=== PATIENT | female | born 1995 | race African-American/Black ===

== ENCOUNTER 2016-11-28 06:56 | Emergency (ER) | payer MEDICAID, OTHER ==
[~2016-11-28] VITALS: Ht 162.6 cm; Wt 103.9 kg
[2016-11-28 07:27] VITALS: BP 140/65
[2016-11-28 07:57] LABS: Basophils # (auto) 0 uL; Basophils % (auto) 0.3 % (0.0-2.0); Eosinophils # (auto) 0.2 uL; Eosinophils % (auto) 3.6 % (0.0-7.0); Lymphocytes # (auto) 2.1 uL; Lymphocytes % (auto) 33.1 % (10.0-50.0); Mean Corpuscular Hemoglobin 29.1 pg (28.0-32.0); Mean Corpuscular Hgb Conc. 33.3 g/dL (32.0-36.0); Mean Corpuscular Volume 87.6 fL (80.0-100.0); Mean Platelet Volume 8.5 fL (7.4-10.4); Monocytes # (auto) 0.3 uL; Monocytes % (auto) 5.3 % (0.0-12.0); Neutrophils # (auto) 3.7 uL; Neutrophils % (auto) 57.7 % (37.0-80.0); Platelet Count (auto) 249 10^3/uL (140-450); Red Cell Distribution Width 13.9 % (11.6-16.0); White Blood Cell 6.4 10^3/uL (4.4-10.8)
== END 2016-11-28 11:00 | disposition home or self-care (01) ==
LOC: ER 06:59
DX: O26.851 Spotting complicating pregnancy, first trimester (principal); G30.9 Alzheimer's disease, unspecified; F02.80 Dementia in other diseases classified elsewhere, unspecified severity, without behavioral disturbance, psychotic disturbance, mood disturbance, and anxiety; Z3A.12 12 weeks gestation of pregnancy
CPT/HCPCS: 36415; 76801; 84702; 85025

== ENCOUNTER 2022-04-09 07:39 | Emergency (ER) | payer MEDICAID ==
[~2022-04-09] VITALS: Ht 165.1 cm; Wt 100.9 kg
[2022-04-09 10:45] VITALS: BP 147/100
== END 2022-04-09 10:52 | disposition home or self-care (01) ==
LOC: ER 07:39
DX: M76.62 Achilles tendinitis, left leg (principal)
CPT/HCPCS: 73610; 73630; 93971

== ENCOUNTER 2025-01-22 13:16 | Emergency (ER) | payer MEDICAID ==
[~2025-01-22] VITALS: Ht 162.6 cm; Wt 113.6 kg
[~2025-01-22 13:16] MED LIST: BENZLOZ2 MT; CLIN150C18 PO; IBUP1TAB5 PO; PRED20TA2 PO
--- NOTE | 2025-01-22 14:19 | ED.PDOC ---
Eye-HPI HPI Comments A 29 YEAR-OLD FEMALE PRESENTS TO THE ED WITH A CHIEF COMPLAINT OF RIGHT SIDED EAR PAIN AND JAW PAIN OF YESTERDAY. PATIENT STATES THAT SHE HEARD HER JAW "POP" LAST NIGHT, AND HAS SINCE BEEN EXPERIENCING RIGHT SIDED JAW PAIN DUE TO RIGHT SIDE EAR PAIN. PATIENT HAS NO FURTHER COMPLAINTS AT THIS TIME AND OTHERWISE DENIES THROAT PAIN, TOOTH PAIN, FEVER, CHILLS, OR N/V. PATIENT IS ALERT, ORIENTED X 4, AND HAS STEADY GAIT. PT IS ABLE TO TALK AND OPEN MOUTH WITH NORMAL ROM. Chief Complaint: Jaw Pain Time Seen by MD: 14:00 Primary Care Provider: Ramon Reviewed Notes: Nurses Notes, Medications, Allergies Allergies: Coded Allergies: NO KNOWN ALLERGIES (Unverified , 11/11/11) Home Meds Active Scripts Ibuprofen (Ibuprofen) 800 Mg Tab, 1 TAB PO TID, #30 TAB Prov:LUIS F DIANA 01/22/25 Amoxicillin & Pot Clavulanate (AUGMENTIN TABLET) 875 Mg Tb, 875 MG PO BID, #20 TAB Prov:LUIS F DIANA 01/22/25 Ibuprofen Micronized (Ibuprofen) 600 Mg Tab, 1 TAB PO Q6HPRN PRN, #20 TAB For pain Prov:LEONHAYDENALDA Q BIOMATHEMATICIAN 09/22/23 Benzocaine-Menthol (Mouth-Thro (Cepacol Sore Throat) 1 Nahomy Nahomy, 1 NAHOMY MT Q4HPRN PRN, #24 NAHOMY As needed for sore throat Prov:TERRY LEONA Q BIOMATHEMATICIAN 09/22/23 Prednisone (Prednisone) 20 Mg Tab, 1 TAB PO DAILY for 5 Days, #5 TAB Start tomorrow with food Prov:TENISHA LEON Q BIOMATHEMATICIAN 09/22/23 Clindamycin Hcl (Clindamycin Hcl) 150 Mg Cap, 1 CAP PO QID for 10 Days, #40 CAP Prov:TENISHA LEON Q BIOMATHEMATICIAN 09/22/23 Information Source: Patient Mode of Arrival: Ambulatory Timing: Days (X1) Duration: Since onset Quality: Pain (RIGHT SIDED ) Lids: Normal Conjunctiva: Normal Cornea: Normal Pupils: Normal EOM: Normal Fundus: Normal Slit lamp exam: Normal Anterior chamber: Normal Mouth Location: Right Mouth: Right (JAW) ENT Ear Exam: Red, Bulging, Dull Nose: Normal Sinuses: Normal Onset: Spontaneous Associated signs and symptoms: Ear Pain (RIGHT ), Other (RIGHT SIDED EAR PAIN ) Past Medical History PAST MEDICAL HISTORY: Denies Surgical History: Denies all surgeries DIRT SHOVELER History: No Pertinent DIRT SHOVELER History Family History Family History: Unknown Social History Smoker: Non-Smoker Alcohol: Denies ETOH Use Drugs: Denies Drug Use Lives In: Home Constitutional: denies: chills, diaphoresis, fatigue, fever, malaise, sweats, weakness, others EENTM: reports: ear pain (RIGHT); denies: blurred vision, double vision, ear bleeding, ear discharge, ear drainage, ear ringing, eye pain, eye redness, hearing loss, mouth pain, mouth swelling, nasal discharge, nose bleeding, nose congestion, nose pain, photophobia, tearing, throat pain, throat swelling, voice changes Respiratory: denies: cough, hemoptysis, orthopnea, SOB at rest, shortness of breath, SOB with excertion, stridor, wheezing, others Cardiovascular: denies: chest pain, dizzy spells, diaphoresis, Dyspnea on exertion, edema, irregular heart beat, left arm pain, lightheadedness, palpitations, PND, syncope, others Gastrointestinal: denies: abdomen distended, abdominal pain, blood streaked bowels, constipated, diarrhea, dysphagia, difficulty swallowing, hematemesis, melena, nausea, poor appetite, poor fluid intake, rectal bleeding, rectal pain, vomiting, others Genitourinary: denies: abnormal vagina bleeding, burning, dyspareunia, dysuria, flank pain, frequency, hematuria, incontinence, pain, , vagina discharge, urgency, others Neurological: denies: dizziness, fainting, headache, left sided numbness, left sided weakness, numbness, paresthesia, pre-existing deficit, right sided numbness, right sided weakness, seizure, speech problems, tingling, tremors, weakness, others Musculoskeletal: denies: back pain, gout, joint pain, joint swelling, muscle pain, muscle stiffness, neck pain, others Integumetry: denies: bruises, change in color, change in hair/nails, dryness, laceration, lesions, lumps, rash, wounds, others Allergic/Immunocompromised: denies: Difficulty Healing, Frequent Infections, Hives, Itching, others Hematologic/Lymphatic: denies: anemia, blood clots, easy bleeding, easy bruising, swollen glands, others Endocrine: denies: excessive hunger, excessive sweating, excessive thirst, excessive urination, flushing, intolerance to cold, intolerance to heat, une xplained weight gain, unexplained weight loss, others Psychiatric: denies: anxiety, bipolar disorder, depression, hopeless, panic disorder, schizophrenia, sleepless, suicidal, others All Other Systems: Reviewed and Negative Physical Exam General Appearance: No Apparent Distress, Obese HEENT: PERRL/EOMI, Pharynx Normal, TM Abnormal (R) (ERYTHEMA AND DULL WITH EFFUSION OF RIGHT TM, NO BLEEDING AND SWELLING, NO FACIAL REDNESS AND DEFORMITY. ) Neck: Full Range of Motion, Non-Tender, Normal, Normal Inspection Respiratory: Chest Non-Tender, Lungs Clear, No Accessory Muscle Use, No Respiratory Distress, Normal Breath Sounds Cardiovascular: No Edema, No JVD, No Murmur, No Gallop, Normal Peripheral Pulses, Regular Rate/Rhythm Breast Exam: Deferred Gastrointestinal: No Organomegaly, Non Tender, No Pulsatile Mass, Normal Bowel Sounds, Soft Genitalia: Deferred Pelvic: Deferred Rectal: Deferred Extremities: No calf tenderness, Normal capillary refill, Normal inspection, Normal range of motion, Non-tender, No pedal edema Musculoskeletal : Apperance: Normal Neurologic: Alert, repair order clerk II-XII nml as Tested, No Motor Deficits, Normal Affect, Normal Mood, No Sensory Deficits Cerebellar Function: Normal Reflexes: Normal Skin: Dry, Normal Color, Warm Peripheral Pulses: 2+ carotid (R), 2+ carotid (L) Lymphatic: No Adenopathy Was a procedure done? Was a procedure done?: No EENT DIFF Eye: Other Ear: Otitis Externa, Otitis Media, Pharyngitis X-Ray, Labs, Meds, VS Vital Signs Date Time Temp Pulse Resp B/P (MAP) Pulse Ox O2 Delivery O2 Flow Rate FiO2 01/22/25 13:45 98.7 88 20 148/108 (121) 97 98.7 01/22/25 13:45 88 20 X-Ray, Labs, Meds, VS Comment EXTERNAL MEDICAL RECORDS: NONE INDEPENDENT HISTORIANS: NONE SOCIAL DETERMINANTS OF HEALTH: NONE LABS ORDERED: NONE REVIEWED AND INTERPRETED RESULTS: NONE IMAGING ORDERED: NONE TREATMENTS ORDERED: NONE PATIENT'S CASE AND RESULTS HAVE BEEN DISCUSSED WITH THE ED ATTENDING PHYSICIAN AND THEY AGREE WITH MY PLAN OF CARE. RX: AUGMENTIN AND IBUPROFEN I HAVE DISCUSSED IMAGING AND LAB RESULTS WITH THE PATIENT AND HAVE INSTRUCTED THE PATIENT TO FOLLOW UP WITH THEIR PCP IN 1-2 DAYS. THE PATIENT FULLY UNDERSTANDS THEIR RESULTS AND ARE AWARE THEY NEED TO FOLLOW UP WITH THEIR PCP FOR FURTHER EVALUATION IF THEIR SYMPTOMS PERSIST. Images Reviewed?: Images reviewed and evaluated by me Time of 1ST Reevaluation: 14:28 Reevaluation 1ST: Improved Patient Education/Counseling: Diagnosis, Treatment, Need For Follow Up Family Education/Counseling: Diagnosis, Treatment, Need For Follow Up Medical Screening: No EMC Exist At This Time SEPSIS Sepsis Screen Vital Signs Date Time Temp Pulse Resp B/P (MAP) Pulse Ox O2 Delivery O2 Flow Rate FiO2 01/22/25 13:45 98.7 88 20 148/108 (121) 97 98.7 01/22/25 13:45 88 20 Departure 1 Departure Time of Disposition: 14:28 Impression: Primary Impression: Acute otitis media with effusion of right ear Disposition: 01 HOME / SELF CARE / HOMELESS Condition: Stable Additional Instructions: FOLLOW-UP WITH PCP IN 1 TO 2 DAYS. TAKE MEDICATIONS PRESCRIBED. RETURN TO ED FOR ANY NEW OR WORSENING SYMPTOMS. e-Prescriptions Ibuprofen (Ibuprofen) 800 Mg Tab 1 TAB PO TID, #30 TAB Prov: LUIS F DIANA 01/22/25 Amoxicillin & Pot Clavulanate (AUGMENTIN TABLET) 875 Mg Tb 875 MG PO BID, #20 TAB Prov: LUIS F DIANA 01/22/25 Discharged With: Self Critical Care Note Critical Care Time?: No Stability Stability form required: No Heart Score Heart Score: Heart Score Response (Comments) Value History N/A 0 EKG N/A 0 Age N/A 0 Risk Factors N/A 0 Troponin N/A 0 Total 0 I personally scribed for LUIS F DIANA ([email or web address]) on 01/22/25 at 14:19. Electronically submitted by Karime [email or web address]). LUIS F DIANA Jan 22, 2025 14:19
[2025-01-22] MEDS ORDERED: IBUP-1456 PO (14:21)
[2025-01-22] MEDS ORDERED: AUG875T PO (14:21)
[2025-01-22] MEDS ORDERED: cefTRIAXone SOD 1,000 MG VL IM ONE (14:30)
[2025-01-22] MEDS ORDERED: IBUPROFEN 800 MG TAB PO ONE (14:30)
[2025-01-22 14:31] VITALS: BP 129/93; PULSE 85; RESP 16; TEMP 98.2; O2SAT 96
== END 2025-01-22 14:35 | disposition home or self-care (01) ==
LOC: ER 13:16
DX: H65.191 Other acute nonsuppurative otitis media, right ear (principal); R68.84 Jaw pain

== ENCOUNTER 2025-01-24 16:27 | Emergency (ER) | payer MEDICAID ==
[~2025-01-24] VITALS: Ht 162.6 cm; Wt 113.8 kg
[~2025-01-24 16:27] MED LIST changes: +AUG875T PO; +IBUP-1456 PO
--- NOTE | 2025-01-24 16:51 | ED.PDOC ---
History of Present Illness HPI Comments 29-year-old female presents to the ER with no prior medical history associated to chief complaint of jaw pain. Patient reports that her right-sided jaw popped on 22 of January and came to the ER for which was told that she had an ear infection and was given antibiotics. When the patient woke up this morning, the patient felt that her jaw was uncomfortable and she was concerned of some TMJ issue. Patient notes that she does have pain whenever she opens her mouth to eat or in general. Denies chills, fever, N/V/D, SOB, CP. No other associated symptoms, modifiers, recent injuries or sick contacts present at this time. Vital signs were stable Time Seen by MD: 16:45 Primary Care Provider: Ramon Reviewed Notes: Nurses Notes, Medications, Allergies Allergies: Coded Allergies: NO KNOWN ALLERGIES (Unverified , 11/11/11) Home Meds Active Scripts Ibuprofen (Ibuprofen) 800 Mg Tab, 1 TAB PO TID, #30 TAB Prov:LUIS F DIANA 01/22/25 Amoxicillin & Pot Clavulanate (AUGMENTIN TABLET) 875 Mg Tb, 875 MG PO BID, #20 TAB Prov:LUIS F DIANA 01/22/25 Ibuprofen Micronized (Ibuprofen) 600 Mg Tab, 1 TAB PO Q6HPRN PRN, #20 TAB For pain Prov:TENISHA LEON Q HEALTH POLICY MANAGER 09/22/23 Benzocaine-Menthol (Mouth-Thro (Cepacol Sore Throat) 1 Nahomy Nahomy, 1 NAHOMY MT Q4HPRN PRN, #24 NAHOMY As needed for sore throat Prov:TENISHA LEON Q HEALTH POLICY MANAGER 09/22/23 Prednisone (Prednisone) 20 Mg Tab, 1 TAB PO DAILY for 5 Days, #5 TAB Start tomorrow with food Prov:TENISHA LEON Q HEALTH POLICY MANAGER 09/22/23 Clindamycin Hcl (Clindamycin Hcl) 150 Mg Cap, 1 CAP PO QID for 10 Days, #40 CAP Prov:TENISHA LEON Q HEALTH POLICY MANAGER 09/22/23 Information Source: Patient Mode of Arrival: Ambulatory Severity: Moderate Timing: Days Duration: Since onset, Days Prehospital treatment: None Past Medical History PAST MEDICAL HISTORY: Denies Surgical History: Denies all surgeries TOOLING MECHANIC History: No Pertinent TOOLING MECHANIC History Family History Family History: Reviewed,noncontributory to illness, Unknown Social History Smoker: Non-Smoker Alcohol: Denies ETOH Use Drugs: Denies Drug Use Lives In: Home Constitutional: denies: chills, diaphoresis, fatigue, fever, malaise, sweats, weakness, others EENTM: reports: others (Right-sided jaw pain); denies: blurred vision, double vision, ear bleeding, ear discharge, ear drainage, ear pain, ear ringing, eye pain, eye redness, hearing loss, mouth pain, mouth swelling, nasal discharge, nose bleeding, nose congestion, nose pain, photophobia, tearing, throat pain, throat swelling, voice changes Respiratory: denies: cough, hemoptysis, orthopnea, SOB at rest, shortness of breath, SOB with excertion, stridor, wheezing, others Cardiovascular: denies: chest pain, dizzy spells, diaphoresis, Dyspnea on exertion, edema, irregular heart beat, left arm pain, lightheadedness, palpitations, PND, syncope, others Gastrointestinal: denies: abdomen distended, abdominal pain, blood streaked bowels, constipated, diarrhea, dysphagia, difficulty swallowing, hematemesis, melena, nausea, poor appetite, poor fluid intake, rectal bleeding, rectal pain, vomiting, others Genitourinary: denies: abnormal vagina bleeding, burning, dyspareunia, dysuria, flank pain, frequency, hematuria, incontinence, pain, , vagina discharge, urgency, others Neurological: denies: dizziness, fainting, headache, left sided numbness, left sided weakness, numbness, paresthesia, pre-existing deficit, right sided numbness, right sided weakness, seizure, speech problems, tingling, tremors, w eakness, others Musculoskeletal: denies: back pain, gout, joint pain, joint swelling, muscle pain, muscle stiffness, neck pain, others Integumetry: denies: bruises, change in color, change in hair/nails, dryness, laceration, lesions, lumps, rash, wounds, others Allergic/Immunocompromised: denies: Difficulty Healing, Frequent Infections, Hives, Itching, others Hematologic/Lymphatic: denies: anemia, blood clots, easy bleeding, easy bruising, swollen glands, others Endocrine: denies: excessive hunger, excessive sweating, excessive thirst, excessive urination, flushing, intolerance to cold, intolerance to heat, unexplained weight gain, unexplained weight loss, others Psychiatric: denies: anxiety, bipolar disorder, depression, hopeless, panic disorder, schizophrenia, sleepless, suicidal, others All Other Systems: Reviewed and Negative Physical Exam General Appearance: Moderate Distress ([id number] distress due to anxiety and mild pain related to her jaw concerns.), Obese HEENT: Pharynx Normal, TMs Normal, Other (Patient is unable to extend her jaw when opening her mouth due to discomfort. Was I med who assess or appreciate any inappropriate clicking or TMJ dysfunction. No edema or ecchymosis. No crepitus.) Neck: Full Range of Motion, Non-Tender, Normal, Normal Inspection Respiratory: Chest Non-Tender, Lungs Clear, No Accessory Muscle Use, No Respiratory Distress, Normal Breath Sounds Cardiovascular: No Edema, No JVD, No Murmur, No Gallop, Normal Peripheral Pulses, Regular Rate/Rhythm Breast Exam: Deferred Gastrointestinal: No Organomegaly, Non Tender, No Pulsatile Mass, Normal Bowel Sounds, Soft Genitalia: Deferred Pelvic: Deferred Rectal: Deferred Extremities: No calf tenderness, Normal capillary refill, Normal inspection, Normal range of motion, Non-tender, No pedal edema Musculoskeletal : Apperance: Normal Neurologic: Alert, No Motor Deficits, Normal Affect, Normal Mood, No Sensory Deficits Cerebellar Function: Normal Reflexes: Normal Skin: Dry, Normal Color, Warm Lymphatic: No Adenopathy Was a procedure done? Was a procedure done?: No Differential Dx Considerations may include: TMJ syndrome, mandibular fracture X-Ray, Labs, Meds, VS Vital Signs Date Time Temp Pulse Resp B/P (MAP) Pulse Ox O2 Delivery O2 Flow Rate FiO2 01/24/25 17:42 83 16 98 Room Air* 0 21 01/24/25 16:55 98.2 83 16 134/101 (112) 98 98.2 01/24/25 16:55 98.2 83 16 134/101 (112) 98 98.2 Current Medications Medications (Trade) Dose Ordered Sig/Antwan Route Start Time Stop Time Status Last Admin Dexamethasone Sodium Phosphate (Decadron Injection) 10 mg ONCE ONCE IM 01/24/25 17:00 01/24/25 17:01 DC 01/24/25 17:37 X-Ray, Labs, Meds, VS Comment All studies performed the ED were evaluated by me personally. Imaging studies were unremarkable for any acute fractures or TMJ concerns. Advised patient that she will need to follow up with the primary care provider if the symptoms continue for possible referral to address what may be developing TMJ concerns. Advised anti-inflammatory for the next few days. Time of 1ST Reevaluation: 17:56 Reevaluation 1ST: Improved Consultation: PCP Patient Education/Counseling: Diagnosis, Treatment, Prognosis Family Education/Counseling: Diagnosis, Treatment, No Family Present SEPSIS Sepsis Screen Recent Procedure: No On Antibiotic Therapy: No Respiratory Rate >20: No Heart Rate >90: No Temp<36 C (96.8 F) or >38.3 C: No SBP <90 or MAP <65 mmHG: No New Acute Mental Status Change: No Is the patient on CPAP, BIPAP,: No Physician Orders Mandible Complete Min 4v (01/24/25 16:46) Vital Signs Date Time Temp Pulse Resp B/P (MAP) Pulse Ox O2 Delivery O2 Flow Rate FiO2 01/24/25 17:42 83 16 98 Room Air* 0 21 01/24/25 16:55 98.2 83 16 134/101 (112) 98 98.2 01/24/25 16:55 98.2 83 16 134/101 (112) 98 98.2 Medications Medications Dose Ordered Sig/Antwan Route Start Time Stop Time Status Last Admin Dose Admin Dexamethasone Sodium Phosphate 10 mg ONCE ONCE IM 01/24/25 17:00 01/24/25 17:01 DC 01/24/25 17:37 Departure 1 Departure Time of Disposition: 17:56 Impression: Primary Impression: TMJ arthralgia Disposition: 01 HOME / SELF CARE / HOMELESS Condition: Stable Additional Instructions: Advised patient utilize anti-inflammatory for the next few days. If symptoms continue, patient will need to follow up with the primary care provider for po ssible referral and evaluation from a specialist. e-Prescriptions Ibuprofen Micronized (Ibuprofen) 800 Mg Tab 800 MG PO Q8HP PRN, #20 TAB Prov: JIM LIND PAC 01/24/25 Discharged With: Self, Friend Critical Care Note Critical Care Time?: No Stability Stability form required: No Heart Score Heart Score: Heart Score Response (Comments) Value History N/A 0 EKG N/A 0 Age N/A 0 Risk Factors N/A 0 Troponin N/A 0 Total 0 I personally scribed for JIM LIND PAC ([email or web address]) on 01/24/25 at 16:51. Electronically submitted by Refugio Bryan ([email or web address]). JIM LIND PAC Jan 24, 2025 16:51
[2025-01-24 17:42] VITALS: PULSE 83; RESP 16; O2SAT 98
--- NOTE | 2025-01-24 17:44 | DVH ---
CLINICAL INDICATION: Right-sided TMJ concerns TECHNIQUE: XY MANDIBLE COMPLETE MIN 4V Comparison: None FINDINGS/IMPRESSION: : There is no evidence of acute fracture or dislocation. Soft tissues are unremarkable.
[2025-01-24] MEDS ORDERED: IBUP-1455 PO (17:57)
[2025-01-24 18:14] VITALS: BP 141/100; PULSE 73; RESP 17; TEMP 98.7; O2SAT 96
== END 2025-01-24 18:16 | disposition home or self-care (01) ==
LOC: ER 16:27
DX: M26.629 Arthralgia of temporomandibular joint, unspecified side (principal); Z79.1 Long term (current) use of non-steroidal anti-inflammatories (NSAID); Z79.899 Other long term (current) drug therapy
CPT/HCPCS: 70110; 96372; 99283; J1100

== ENCOUNTER 2025-04-09 19:55 | Emergency (ER) | payer MEDICAID ==
[~2025-04-09] VITALS: Ht 165.1 cm; Wt 115.2 kg
[~2025-04-09 19:55] MED LIST changes: +IBUP-1455 PO
--- NOTE | 2025-04-09 20:08 | ED.PDOC ---
SOCIAL SECURITY ASSESSOR HPI Comments 29-year-old female came to ER for vaginal bleeding. Patient is a , carson roximately 8 weeks . She has been having vaginal spotting earlier today, associated with lower abdominal cramping pain, and lower back pains REVIEW OF SYSTEMS: General: No fever, no chills, or fatigue HEENT: No sore throat, no earache, no congestion, no neck pain. Cardiac: No chest pain. No palpitations. Lungs: No shortness of breath, no cough. GI: No nausea, no vomiting, no diarrhea, no constipation, (+) abdominal pain : No dysuria, frequency, or urgency. No hematuria. (+) vaginal bleeding Musculoskeletal: No joint pain , no joint swelling, no extremity edema. Skin: No rash, no itching. Neuro: No headache, no dizziness, no weakness PHYSICAL EXAM: General: Awake, alert and oriented. No acute distress. Skin: Skin in warm, dry and intact without rashes or lesions. HEENT: The head is normocephalic and atraumatic. Conjunctivae are clear without exudates or hemorrhage. Sclera is non-icteric. Neck: Normal range of motion. No JVD. Cardiac: Regular rate Respiratory: No signs of respiratory distress. No Stridor. Abdomen: Mild suprapubic tenderness Neurological: The patient is awake, alert and oriented to person, place, and time with normal speech. Speech is clear. There is no facial asymmetry. Psychiatric: Appropriate mood and affect. Good judgement and insight. Chief Complaint: Vaginal Bleed Time Seen by MD: 20:08 Reviewed Notes: Nurses Notes Allergies: Coded Allergies: NO KNOWN ALLERGIES (Unverified , 11/11/11) Home Meds Active Scripts Ibuprofen Micronized (Ibuprofen) 800 Mg Tab, 800 MG PO Q8HP PRN, #20 TAB Prov:JIM LIND PAC 01/24/25 Ibuprofen (Ibuprofen) 800 Mg Tab, 1 TAB PO TID, #30 TAB Prov:LUIS F DIANA 01/22/25 Amoxicillin & Pot Clavulanate (AUGMENTIN TABLET) 875 Mg Tb, 875 MG PO BID, #20 TAB Prov:LUIS F DIANA 01/22/25 Ibuprofen Micronized (Ibuprofen) 600 Mg Tab, 1 TAB PO Q6HPRN PRN, #20 TAB For pain Prov:TENISHA LEON Q [employer] 09/22/23 Benzocaine-Menthol (Mouth-Thro (Cepacol Sore Throat) 1 Nahomy Nahomy, 1 NAHOMY MT Q4HPRN PRN, #24 NAHOMY As needed for sore throat Prov:TERRY LEONA Q [employer] 09/22/23 Prednisone (Prednisone) 20 Mg Tab, 1 TAB PO DAILY for 5 Days, #5 TAB Start tomorrow with food Prov:TENISHA LEON Q [employer] 09/22/23 Clindamycin Hcl (Clindamycin Hcl) 150 Mg Cap, 1 CAP PO QID for 10 Days, #40 CAP Prov:TENISHA LEON Q [employer] 09/22/23 Information Source: Patient Mode of Arrival: Ambulatory Past Medical History PAST MEDICAL HISTORY: Denies Surgical History: MELTING FURNACE SKIMMER History: No Pertinent MELTING FURNACE SKIMMER History 2 Para 1 LMP February 06, 2025 Family History Family History: Reviewed,noncontributory to illness, Unknown Social History Smoker: Non-Smoker Alcohol: Denies ETOH Use Drugs: Denies Drug Use Lives In: Home Was a procedure done? Was a procedure done?: No Differential Diagnosis (MELTING FURNACE SKIMMER) Vaginal Bleeding: - Complete, - Incomplete, - Inevitable, - Missed, - Threatened, Ectopic , Placenta Previa, UTI, Other X-Ray, Labs, Meds, VS Vital Signs Date Time Temp Pulse Resp B/P (MAP) Pulse Ox O2 Delivery O2 Flow Rate FiO2 04/09/25 20:05 97.8 89 18 141/90 97 97.8 Lab Test 04/09/25 20:28 04/09/25 20:11 Range/Units White Blood Count 7.8 4.4-10.8 10^3/uL Red Blood Count 4.46 4.0-5.20 10^6/uL Hemoglobin 13.2 12.2-16.2 g/dL Hematocrit 39.2 36.0-46.0 % Mean Corpuscular Volume 87.9 80.0-100.0 fL Mean Corpuscular Hemoglobin 29.7 28.0-32.0 pg Mean Corpuscular Hemoglobin Concent 33.8 32.0-36.0 g/dL Red Cell Distribution Width 15.0 H 11.8-14.3 % Platelet Count 264 140-450 10^3/uL Mean Platelet Volume 8.2 6.9-10.8 fL Neutrophils (%) (Auto) 63.6 37.0-80.0 % Lymphocytes (%) (Auto) 26.9 10.0-50.0 % Monocytes (%) (Auto) 7.0 0.0-12.0 % Eosinophils (%) (Auto) 1.6 0.0-7.0 % Basophils (%) (Auto) 0.9 0.0-2.0 % Neutrophils # (Auto) 4.9 1.6-8.6 10 ^3/uL Lymphocytes # (Auto) 2.1 0.4-5.4 10 ^3/uL Monocytes # (Auto) 0.5 0-1.3 10 ^3/uL Eosinophils # (Auto) 0.1 0-0.8 10 ^3/uL Basophils # (Auto) 0.1 0-0.2 10 ^3/uL Nucleated Red Blood Cells 0.0 % Sodium Level 137 136-145 mmol/L Potassium Level 3.7 3.5-5.1 mmol/L Chloride Level 106 98-107 mmol/L Carbon Dioxide Level 21 20-31 mmol/L Anion Gap 10 5-15 Blood Urea Nitrogen 9 9-23 mg/dL Creatinine 0.69 0.550-1.02 mg/dL Glomerular Filtration Rate Calc 119 >90 mL/min BUN/Creatinine Ratio 13.0 10.0-20.0 Serum Glucose 103 74-106 mg/dL Calcium Level 9.4 8.7-10.4 mg/dL Urine Color Light-yellow Yellow Urine Clarity Clear Clear Urine pH 6.0 5.0-9.0 Urine Specific Handley 1.028 1.001-1.035 Urine Protein Negative Negative Urine Ketones 1+ H Negative Urine Blood Negative Negative /uL Urine Nitrite Negative Negative Urine Bilirubin Negative Negative Urine Urobilinogen Normal Negative mg/dL Urine Leukocyte Esterase Negative Negative /uL Urine RBC <1 0 - 4 /hpf Urine Microscopic WBC 1 0-5 /HPF Urine Squamous Epithelial Cells Few <5 /hpf Urine Bacteria None seen None Seen /hpf Urine Glucose Normal Normal mg/dL Urine Test Positive Negative Chlamydia trachomatis ([facility]) Pending Neisseria gonorrhoeae ([facility]) Pending [facility] [id number] [place] [id number] Ph: [phone] DIAGNOSTIC IMAGING Diagnostic Imaging Report : [id number] Signed PATIENT: ANU CHUN ACCT: [id number] UNIT: [id number] : 1995 LOC: ER ROOM / BED: / AGE / SEX: 29 / F ADM STATUS: REG ER SERVICE 58 ORDERING PHYSICIAN: RHONDA FLANAGAN MD PROCEDURE(s): OB4US - OB ULTRASOUND COMP LESS 14WKS REASON: Vaginal Bleeding during ORDER NUMBER(s): [id number], ACCESSION NUMBER(s): [id number] Procedure: US OB ULTRASOUND COMP LESS 14WKS 04/09/2025 09:11 PM Indication: Vaginal Bleeding during Comparison: None Technique: Real-time grayscale and color images were obtained transabdominally. FINDINGS: UTERUS: Anteverted, measuring 12.9 cm in length. Homogeneous myometrium without a discrete lesion. There is an intrauterine gestational SAC measuring 5.5 x 2.3 x 5.7 cm with mean SAC diameter of 4.5 cm. There is a 1.5 cm subchorionic hemorrhage. pole is identified measuring 2.1 cm crown rump length. heart rate is obtained measuring 173 beats per minute. CERVIX: Few subcentimeter simple nabothian cysts are seen. RIGH OVARY: 4.8 cm in length. 19.3 mL in volume. Preserved vascular flow. No suspicious lesions identified. Corpus luteum identified. LEFT OVARY: 3.5 cm in length. 8.2 mL in volume. Preserved vascular flow. No saman picious lesions identified. CUL-DE-SAC: No significant fluid noted. OTHER: None. IMPRESSION: 1. Single living intrauterine with estimated gestational age of 8 weeks and 5 day by crown-rump length. 2. Small subchorionic hemorrhage. 3. Estimated due date 11/09/24 ATED BY: GUERRERO LE MD DICTATED DATE/TIME: 04/09/252146 Time of 1ST Reevaluation: 20:06 Reevaluation 1ST: Unchanged Patient Education/Counseling: Need For Follow Up Family Education/Counseling: No Family Present Departure 1 Departure Time of Disposition: 22:05 Impression: Primary Impression: Vaginal bleeding during Additional Impression: Subchorionic hemorrhage Disposition: 01 HOME / SELF CARE / HOMELESS Condition: Stable Additional Instructions: ED DISCHARGE INSTRUCTIONS Instructions: Please read all instructions provided in this packet carefully. Although you have been discharged from the Emergency Department, this does not mean that you have a "clean bill of health". []No definitive diagnosis for your symptoms has been made today. It is possible that you are in the process of developing a serious illness. This is why you must return to the ED without fail if any new or worsening symptoms (especially if your symptoms include chest pain, trouble breathing, abdominal pain, fever, headache, confusion, trouble seeing, or trouble walking) It is also very important that you see an wood flour miller within the next 3-5 days to follow up. You will need a repeat ultrasound. If you are unable to get an appointment, return to the ED for re-evaluation. A copy of your ultrasound report is included below --- Subchorionic Hemorrhage Overview A subchorionic hematoma or hemorrhage is bleeding between the wall of the uterus and one of the sacs (chorion) that surrounds the embryo inside the uterus. It is a common cause of bleeding in early . The main symptom is vaginal bleeding. But some people don't have symptoms. They may find out they have a hematoma during an ultrasound test. In most cases, the bleeding goes away on its own. Most people go on to have a healthy baby. But in some cases, the bleeding is a sign of a miscarriage or other problem with the . Your doctor may want to do a follow-up ultrasound. Credits for Subchorionic Hemorrhage Current as of: February 02, 2025 Author: [employer] Staff ([email or web address]) Clinical Review Board ([email or web address]/[email or web address]) All [employer] education is reviewed by a team that includes physicians, nurses, advanced practitioners, registered dieticians, and other healthcare professionals. --- Vaginal Bleeding During : Care Instructions Abdomen showing location of uterus, cervix, ovaries, fallopian tubes, and vagina. Overview It's common to have some vaginal spotting when you are . In some cases, the bleeding isn't serious. And there aren't any more problems with the . But sometimes bleeding is a sign of a more serious problem. This is more common if the bleeding is heavy or painful. Examples of more serious problems include miscarriage, an ectopic , and a problem with the placenta. You may have to see your doctor again to be sure everything is okay. You may also need more tests to find the cause of the bleeding. Home treatment may be all you need. But it depends on what is causing the bleeding. Be sure to tell your doctor if you have any new symptoms or if your symptoms get worse. The doctor has checked you carefully, but problems can develop later. If you notice any problems or new symptoms, get medical treatment right away. Follow-up care is a samuel part of your treatment and safety. Be sure to make and go to all appointments, and call your doctor if you are having problems. It's also a good idea to know your test results and keep a list of the medicines you take. How can you care for yourself at home? If your doctor prescribed medicines, take them exactly as directed. Call your doctor if you think you are having a problem with your medicine. Do not have vaginal sex until your doctor says it's okay. Do not put anything in your vagina until your doctor says it's okay. Ask your doctor about other activities you can or can't do. Get a lot of rest. Being can make you tired. Do not use nonsteroidal anti-inflammatory drugs (NSAIDs), such as ibuprofen (Advil, Motrin), naproxen (Aleve), or aspirin, unless your doctor says it is okay. When should you call for help? Call 911 anytime you think you may need emergency care. For example, call if: You passed out (lost consciousness). You have severe vaginal bleeding. This means you are soaking through a pad each hour for 2 or more hours. You have sudden, severe pain in your belly or pelvis. Call your doctor now or seek immediate medical care if: You have new or worse vaginal bleeding. You are bleeding through more than 2 pads per hour. You are dizzy or lightheaded, or you feel like you may faint. You have pain in your belly, pelvis, or lower back. You think that you are in labor. You have a sudden release of fluid from your vagina. (Later in ) You've been having regular contractions for an hour. This means that you've had at least 8 contractions within 1 hour or at least 4 contractions within 20 minutes, even after you change your position and drink fluids. You notice that your baby has stopped moving or is moving much less than normal. Watch closely for changes in your health, and be sure to contact your doctor if you have any problems. Credits for Vaginal Bleeding During : Care Instructions Current as of: February 02, 2025 Author: [employer] Staff Clinical Review Board All [employer] education is reviewed by a team that includes physicians, nurses, advanced practitioners, registered dieticians, and other healthcare professionals. ---- Procedure: US OB ULTRASOUND COMP LESS 14WKS 04/09/2025 09:11 PM Indication: Vaginal Bleeding during Comparison: None Technique: Real-time grayscale and color images were obtained transabdominally. FINDINGS: UTERUS: Anteverted, measuring 12.9 cm in length. Homogeneous myometrium without a discrete lesion. There is an intrauterine gestational SAC measuring 5.5 x 2.3 x 5.7 cm with mean SAC diameter of 4.5 cm. There is a 1.5 cm subchorionic hemorrhage. pole is identified measuring 2.1 cm crown rump length. heart rate is obtained measuring 173 beats per minute. CERVIX: Few subcentimeter simple nabothian cysts are seen. RIGH OVARY: 4.8 cm in length. 19.3 mL in volume. Preserved vascular flow. No suspicious lesions identified. Corpus luteum identified. LEFT OVARY: 3.5 cm in length. 8.2 mL in volume. Preserved vascular flow. No suspicious lesions identified. CUL-DE-SAC: No significant fluid noted. OTHER: None. IMPRESSION: 1. Single living intrauterine with estimated gestational age of 8 weeks and 5 day by crown-rump length. 2. Small subchorionic hemorrhage. 3. Estimated due date 11/09/24 Comments 29 F with subchorionic hemorrhage. 8weeks GA. Vital signs stable Patient advised of return precautions. Advised prompt f/u with SOCIAL SECURITY ASSESSOR for re-evaluation. Critical Care Note Critical Care Time?: No Stability Stability form required: No I personally scribed for RHONDA FLANAGAN MD ([email or web address]) on 04/09/25 at 20:08. Electronically submitted by Suhail Llamas ([email or web address]). RHONDA FLANAGAN MD Apr 09, 2025 20:08
[2025-04-09 20:43] LABS: Hematocrit 39.2 % (36.0-46.0); Hemoglobin 13.2 g/dL (12.2-16.2); Mean Corpuscular Hemoglobin 29.7 pg (28.0-32.0); Mean Corpuscular Volume 87.9 fL (80.0-100.0); Nucleated Red Blood Cells % 0.0 %
[2025-04-09 20:46] LABS: Chloride 106 mmol/L (98-107); Potassium 3.7 mmol/L (3.5-5.1); Sodium 137 mmol/L (136-145)
[2025-04-09 20:47] LABS: Anion Gap 10 (5-15); Calcium 9.4 mg/dL (8.7-10.4); Carbon Dioxide 21 mmol/L (20-31)
[2025-04-09 20:52] LABS: Glucose 103 mg/dL (74-106)
[2025-04-09 20:53] LABS: BUN/Creatinine Ratio 13.0 (10.0-20.0); Blood Urea Nitrogen 9 mg/dL (9-23)
[2025-04-09 21:04] LABS: Urine Protein, UAD Negative (Negative)
--- NOTE | 2025-04-09 21:49 | DVH ---
Procedure: US OB ULTRASOUND COMP LESS 14WKS 04/09/2025 09:11 PM Indication: Vaginal Bleeding during Comparison: None Technique: Real-time grayscale and color images were obtained transabdominally. FINDINGS: UTERUS: Anteverted, measuring 12.9 cm in length. Homogeneous myometrium without a discrete lesion. There is an intrauterine gestational SAC measuring 5.5 x 2.3 x 5.7 cm with mean SAC diameter of 4.5 c m. There is a 1.5 cm subchorionic hemorrhage. pole is identified measuring 2.1 cm crown rump le ngth. heart rate is obtained measuring 173 beats per minute. CERVIX: Few subcentimeter simple nabothian cysts are seen. RIGH OVARY: 4.8 cm in length. 19.3 mL in volume. Preserved vascular flow. No suspicious lesions quynh ntified. Corpus luteum identified. LEFT OVARY: 3.5 cm in length. 8.2 mL in volume. Preserved vascular flow. No suspicious lesions ident ified. CUL-DE-SAC: No significant fluid noted. OTHER: None. IMPRESSION: 1. Single living intrauterine with estimated gestational age of 8 weeks and 5 day by crown- rump length. 2. Small subchorionic hemorrhage. 3. Estimated due date 11/09/24
[2025-04-09 22:38] VITALS: BP 139/86; PULSE 70; RESP 18; TEMP 98; O2SAT 98
== END 2025-04-09 22:38 | disposition home or self-care (01) ==
LOC: ER 19:55
DX: O46.8X1 Other antepartum hemorrhage, first trimester (principal); Z3A.08 8 weeks gestation of pregnancy; Z79.899 Other long term (current) drug therapy
CPT/HCPCS: 36415; 76801; 80048; 81001; 81025; 85025; 86850; 86900; 86901